=== PATIENT | female | born 1995 | race Two or more races ===

== ENCOUNTER 2024-10-01 16:03 | Emergency (ER) | payer MEDICAID, SELFPAY ==
[2024-10-01 16:04] VITALS: BP 138/76; PULSE 78; RESP 16; TEMP 36.8; O2SAT 99
--- NOTE | 2024-10-01 16:32 | XR_ITS ---
Examination: Complete OB ultrasound, less than 14 weeks, transabdominal Date and time of exam: October 01, 2024 1723 hrs. Indications: Early by history with onset right lower abdomen pain beginning one week ago Technique: Obstetrical ultrasound images less than 14 weeks performed via transabdominal imaging Findings: A normal shaped single intrauterine gestation is present in the uterus. pole 1.3 cm corresponds to 7 weeks 4 days gestational age Cardiac motion 166 BPM Ultrasonographic survey of visible and placental structures unremarkable. Amniotic fluid volume appears appropriate for this estimated gestational age. Right ovary 2.9 x 2.2 x 3.1 cm arterial flow 18 mm follicular cyst Left ovary 3.1 x 2.3 x 3.0 cm arterial flow Impression: Viable intrauterine gestation 7 weeks 4 days.
--- NOTE | 2024-10-01 16:32 | PD.EDRME ---
Rapid Medical Screening Exam RME Arrival date/time: 10/01/24 16:03 29-year-old female approximately 8 weeks presents emergency department complaint of right-sided pelvic pain Chief Complaint: OB/Uterine Contractions Time Seen by Provider: 10/01/24 16:08
[2024-10-01 16:57] LABS: Basophils % (Auto) 0 % (0-2.5); Eosinophils # (Auto) 0.1 Thou/mm3 (0.0-0.5); Eosinophils % (Auto) 1 % (0-10); Hematocrit 39.6 % (36.0-46.0); Hemoglobin 13.7 g/dL (12.0-16.0); Immature Granulocytes % (Auto) 0 % (0-0); Immature Granulocytes Auto 0.04 Thou/mm3 (0.00-0.00); Lymphocytes # (Auto) 2.6 Thou/mm3 (1.0-4.8); Lymphocytes % (Auto) 24 % (10-50); Mean Corpuscular HGB Conc 34.6 g/dl (31.0-37.0); Mean Corpuscular Hemoglobin 30.7 pg (25.0-35.0); Mean Corpuscular Volume 89 fL (80-100); Monocytes # (Auto) 0.6 Thou/mm3 (0.0-0.8); Monocytes % (Auto) 5 % (0-12); Neutrophils # (Auto) 7.5 Thou/mm3 (1.8-7.7); Neutrophils % (Auto) 69 % (37-80); Nucleated Red Blood Cell % 0 /100 WBC (0); Platelet Count 219 Thou/mm3 (140-440); RDW Standard Deviation 40.3 fL (36.4-46.3); Red Blood Count 4.46 Miln/mm3 (4.00-5.20); White Blood Count 10.9 Thou/mm3 (3.6-11.0)
[2024-10-01 17:04] LABS: Collection Type, Urine Clean Catch
[2024-10-01 17:09] LABS: Bilirubin,Urine Negative (Negative); Blood,Urine Trace (Negative); Clarity,Urine Clear (Clear/Hazy); Color,Urine Lt-Yellow (Lt Yel-Yel); Glucose, Urine Negative (Negative); Ketones,Urine 1+ (Negative); Leukocyte Esterase,Urine Negative (Negative); Nitrite,Urine Negative (Negative); PH,Urine 6.5 (5.0-7.0); Protein,Urine Negative (Neg - Trace); RBC,Urine 3 /hpf (0-3); Specific Gravity,Urine 1.016 (1.001-1.035); Squamous Epithelial Cell,Urine 3 /hpf (0-5); Urobilinogen,Urine Negative mg/dL (0.0-1.0); WBC,Urine 1 /hpf (0-5)
[2024-10-01 18:00] LABS: Alanine Aminotransferase 12 U/L (10-49); Albumin, Serum 4.8 gm/dL (3.5-5.0); Albumin/Globulin Ratio 1.7 (1.2-2.2); Alkaline Phosphatase 48 U/L (46-116); Anion Gap 9 (7-16); Aspartate Amino Transferase 14 U/L (0-34); BUN/Creatinine Ratio 17 Ratio (12-20); Beta HCG,Quantitative 48079 mIU/mL (<5.0); Bilirubin,Total 0.3 mg/dL (0.3-1.2); Blood Urea Nitrogen 10 mg/dL (9-23); Calcium 9.6 mg/dL (8.3-10.6); Calcium (Corrected) 9.6 mg/dL (8.5-10.1); Carbon Dioxide 22.9 mMol/L (20.0-31.0); Chloride 103 mMol/L (98-107); Creatinine (Component) 0.6 mg/dL (0.6-1.3); Globulin 2.8 gm/dL (2.3-3.5); Glucose 93 mg/dL (74-106); Osmolality,Calculated 269 (275-295); Potassium 3.7 mMol/L (3.4-5.1); Sodium 135 mMol/L (136-145); Total Protein 7.6 gm/dL (5.7-8.2); eGFR > 60 See Note
--- NOTE | 2024-10-01 22:13 | EDNOTE_ITS ---
ED OB Contraction Preg RMI/HPI General Chief complaint: OB/Uterine Contractions Stated complaint: 8 weeks OB, cramping Time Seen by Provider: 10/01/24 16:08 Arrival date/time: 10/01/24 16:03 This is a 29-year-old female that comes in with complaints of abdominal cramping right lower pelvic area. Upon assessment patient denies any pain.. Patient is a 4 para 2. Patient had an ectopic previously. Patient denies any past medical history. RME / HPI RME / HPI Narrative: 10/01/24 16:03 29-year-old female approximately 8 weeks presents emergency department complaint of right-sided pelvic pain Related Data Home Medications ?Medication ?Instructions ?Recorded ?Confirmed prenat.vits,ewa,[id number]-[id number]-vrzrl 1 tab PO QDAY 02/28/23 04/16/23 Allergies Allergy/AdvReac Type Severity Reaction Status Date / Time No Known Allergies Allergy Verified 04/16/23 08:57 Review of Systems Review of Systems Systems Reviewed: All systems reviewed, normal except as documented Past Medical History Surgical History SURGICAL: Positive Section Social History SOCIAL: Denies Past Medical History Comments PMH COMMENT: Type 2 diabetes ED Exam General General appearance: Present alert and in no apparent distress Head Head exam: Present atraumatic Eye Eye exam: Present normal appearance, PERRL and EOMI ENT ENT exam: Present normal exam, normal oropharynx and mucous membranes moist Neck Neck exam: Present normal inspection, full ROM and trachea midline Chest Chest inspection: Present normal inspection and symmetric chest wall rise Respiratory Respiratory exam: Present normal lung sounds bilaterally Cardiovascular Cardiovascular exam: Present regular rate, normal rhythm and normal heart sounds Abdominal Exam Abdominal exam: Present soft and other (soft nontender ) Extremities Exam Extremities exam: Present normal inspection and full ROM Back Exam Back exam: Present normal inspection and full ROM Neurological Exam Neurological exam: Present alert, oriented X3 and CN II-XII intact Psychiatric Psychiatric exam: Present normal affect and normal mood Skin Skin exam: Present warm, dry, intact and normal color Course Quality Measures none Orders Category Date Time Status US OB <= 14 weeks fetus Stat Exams 10/01/24 16:32 Completed ABO/RH Type Stat Lab 10/01/24 16:47 Completed Beta HCG,Quantitative Stat Lab 10/01/24 16:47 Completed CBC Stat Lab 10/01/24 16:47 Completed Comprehensive Metabolic Panel Stat Lab 10/01/24 16:47 Completed UA [Urinalysis] Stat Lab 10/01/24 16:54 Completed Urine Culture Stat Lab 10/01/24 16:54 Completed Vital Signs Vital signs: Vital Signs Temperature 98.2 F 10/01/24 16:04 Pulse Rate 78 10/01/24 16:04 Respiratory Rate 16 10/01/24 16:04 Blood Pressure 138/76 H 10/01/24 16:04 Pulse Oximetry (%) 99 10/01/24 16:04 Oxygen Delivery Method Room Air 10/01/24 16:04 OB/Uterine Contractions MDM Narrative MDM Narrative:: [place] [address]. Patient told to follow up with obgyn in 1-2 days. Come back to ED if symptoms change ow worsened. Pt denies c/o at the time of dc. Patient data External records reviewed:: [facility] previous records Clinical information provided by:: patient Social determinants that could affect healthcare access:: none Patient has the following chronic illnesses:: none How is presenting disease/condition affected by chronic disease/condition?: no chronic disease Evaluation data The following diagnostics were reviewed and interpreted by me:: lab results and radiology exam(s) Lab and/or radiology exams considered but not ordered:: none Interpretation Summary: see note Medications / Prescriptions Medications or Prescriptions considered but not ordered:: none Medication administrations:: none Consultations Consultation(s) initiated? (list below): No Diagnosis OB Contractions Differential Diagnosis: other (threatened misscarriage, uti) Most likely diagnosis given after review of the tests above:: threatened misscarriage Admission Indicated Explain why admission is indicated or not indicated:: na Admission Request Was there a request for admission?: No Disposition Plan Disposition Plan: Discharge Discharge Attestation Discharge Attestation: The patient and all family members were given an opportunity to ask questions and understood the discharge instructions. Discharge instructions specifically effects, indications for sooner follow up or return to the emergency department, and the expected course of current diagnosis. Patient condition: Stable Discharge Plan Plan Patient Disposition: HOME (Self Care) Patient condition on transfer: Stable Prescriptions/Referrals Prescriptions/Med Rec: No Action prenat.vits,ewa,zqf-cnta-zjxbe Tablet 1 tab PO QDAY Referrals: Beny Michaels MD [Primary Care Provider] - In 1 week Problem List Clinical Impression: 7 weeks gestation of , Follicular cyst of right ovary, Miscarriage, threatened, early Patient/Caregiver Discharge Instructions Discharge Activity: activity as tolerated Education Materials: First Trimester Additional Instructions: Please follow-up with primary provider in 1 to 2 days. Come back to the emergency room symptoms change or worsen. Print Language: [place] Stand Alone Forms: Alicia Award Info., Patient Portal Info Letter PA/REGISTERED NURSE FLOAT POOL Supervising Physician PA/REGISTERED NURSE FLOAT POOL Supervising Physician: ata
== END 2024-10-01 22:32 | disposition home or self-care (01) ==
PROVIDERS: Nurse Practitioner Primary Care; Emergency Provider Emergency Medicine; PCP Family Medicine
DX: O20.0 Threatened abortion (principal); O34.81 Maternal care for other abnormalities of pelvic organs, first trimester; N83.01 Follicular cyst of right ovary; Z3A.01 Less than 8 weeks gestation of pregnancy
CPT/HCPCS: 36415; 76801; 80053; 81001; 84702; 85025; 86900; 86901; 87086; 99284

== ENCOUNTER 2025-05-04 14:48 | Outpatient (RCR) | payer MEDICAID, SELFPAY ==
--- NOTE | 2025-03-23 15:53 | XR_ITS ---
Examination: Biophysical profile, ultrasound Date and time of exam: March 23, 2025 1607 hours INDICATIONS: Gestational diabetes Technique: Multiple transabdominal sonographic images of the pelvis abdomen obtained. Attention is directed to the breathing movement, gross body movement, amniotic fluid volume and tone. Findings: Amniotic fluid index 10.2 cm Total biophysical profile is 8 of 8. breathing movement is 2. Gross body movement is 2. tone is 2. Qualitative amniotic fluid volume is 2 Impression: Biophysical profile is 8 of 8.
[2025-03-23 16:30] VITALS: BP 108/71; PULSE 84; RESP 16; TEMP 36.6
--- NOTE | 2025-03-26 15:36 | XR_ITS ---
Examination: Biophysical profile, ultrasound Date and time of exam: March 26, 2025 1543 hours INDICATIONS: Diagnosis type 2 diabetes Technique: Multiple transabdominal sonographic images of the pelvis abdomen obtained. Attention is directed to the breathing movement, gross body movement, amniotic fluid volume and tone. Findings: Amniotic fluid index 10.9 cm Total biophysical profile is 8 of 8. breathing movement is 2. Gross body movement is 2. tone is 2. Qualitative amniotic fluid volume is 2 Impression: Biophysical profile is 8 of 8.
[2025-03-26 16:25] VITALS: BP 107/63; PULSE 74; RESP 16
--- NOTE | 2025-04-02 15:31 | XR_ITS ---
Examination: Biophysical profile, ultrasound Date and time of exam: April 02, 2025 1533 hours INDICATIONS: Gestational diabetes Technique: Multiple transabdominal sonographic images of the pelvis abdomen obtained. Attention is directed to the breathing movement, gross body movement, amniotic fluid volume and tone. Findings: Amniotic fluid index 16.4 cm Total biophysical profile is 8 of 8. breathing movement is 2. Gross body movement is 2. tone is 2. Qualitative amniotic fluid volume is 2 Impression: Biophysical profile is 8 of 8.
[2025-04-02 16:07] VITALS: BP 107/60; PULSE 80; RESP 16; TEMP 36.7
--- NOTE | 2025-04-06 15:28 | XR_ITS ---
Examination: Biophysical profile, ultrasound Date and time of exam: April 06, 2025 1533 hours INDICATIONS: Diagnosis pre-existing diabetes Technique: Multiple transabdominal sonographic images of the pelvis abdomen obtained. Attention is directed to the breathing movement, gross body movement, amniotic fluid volume and tone. Findings: Amniotic fluid index 11.1 cm Total biophysical profile is 8 of 8. breathing movement is 2. Gross body movement is 2. tone is 2. Qualitative amniotic fluid volume is 2 Impression: Biophysical profile is 8 of 8.
[2025-04-06 16:05] VITALS: BP 106/70; PULSE 93; RESP 16; TEMP 36.7
--- NOTE | 2025-04-13 15:22 | XR_ITS ---
Examination: Biophysical profile, ultrasound Date and time of exam: April 13, 2025 1526 hours Diagnoses pre-existing diabetes Technique: Multiple transabdominal sonographic images of the pelvis abdomen obtained. Attention is directed to the breathing movement, gross body movement, amniotic fluid volume and tone. Findings: Amniotic fluid index 10.8 cm Total biophysical profile is 8 of 8. breathing movement is 2. Gross body movement is 2. tone is 2. Qualitative amniotic fluid volume is 2 Impression: Biophysical profile is 8 of 8.
[2025-04-13 15:42] VITALS: BP 105/58; PULSE 73; RESP 16; TEMP 36.7
--- NOTE | 2025-04-16 09:59 | XR_ITS ---
Examination: Biophysical profile, ultrasound Date and time of exam: 2024 1011 hours INDICATIONS: Diagnosis diabetes Technique: Multiple transabdominal sonographic images of the pelvis abdomen obtained. Attention is directed to the breathing movement, gross body movement, amniotic fluid volume and tone. Findings: Amniotic fluid index 10.6 cm Total biophysical profile is 8 of 8. breathing movement is 2. Gross body movement is 2. tone is 2. Qualitative amniotic fluid volume is 2 Impression: Biophysical profile is 8 of 8.
[2025-04-16 10:53] VITALS: BP 106/59; PULSE 81; RESP 16; TEMP 36.8
--- NOTE | 2025-04-20 15:26 | XR_ITS ---
Examination: Biophysical profile, ultrasound Date and time of exam: April 20, 2025 1529 hours INDICATIONS: Diagnosis gestational diabetes Technique: Multiple transabdominal sonographic images of the pelvis abdomen obtained. Attention is directed to the breathing movement, gross body movement, amniotic fluid volume and tone. Findings: Amniotic fluid index 11 cm Total biophysical profile is 8 of 8. breathing movement is 2. Gross body movement is 2. tone is 2. Qualitative amniotic fluid volume is 2 Impression: Biophysical profile is 8 of 8.
[2025-04-20 16:45] VITALS: BP 108/65; PULSE 82; RESP 19; TEMP 36.7
--- NOTE | 2025-04-23 15:03 | XR_ITS ---
Examination: Biophysical profile, ultrasound Date and time of exam: April 23, 2025 1505 hours INDICATIONS: Diagnosis type 2 diabetes Technique: Multiple transabdominal sonographic images of the pelvis abdomen obtained. Attention is directed to the breathing movement, gross body movement, amniotic fluid volume and tone. Findings: Amniotic fluid index 9.8 cm Total biophysical profile is 8 of 8. breathing movement is 2. Gross body movement is 2. tone is 2. Qualitative amniotic fluid volume is 2 Impression: Biophysical profile is 8 of 8.
[2025-04-23 15:26] VITALS: BP 98/64; PULSE 88; RESP 16; TEMP 36.8
--- NOTE | 2025-04-30 08:52 | XR_ITS ---
Examination: Biophysical profile, ultrasound Date and time of exam: April 30, 2025 0904 hours INDICATIONS: Diagnosis type 2 diabetes Technique: Multiple transabdominal sonographic images of the pelvis abdomen obtained. Attention is directed to the breathing movement, gross body movement, amniotic fluid volume and tone. Findings: Amniotic fluid index 10.5 cm Total biophysical profile is 8 of 8. breathing movement is 2. Gross body movement is 2. tone is 2. Qualitative amniotic fluid volume is 2 Impression: Biophysical profile is 8 of 8.
[2025-04-30 09:27] VITALS: BP 105/71; PULSE 87; RESP 16; TEMP 36.7
--- NOTE | 2025-05-04 14:52 | XR_ITS ---
Examination: Biophysical profile, ultrasound Date and time of exam: May 04, 2025 1453 hours INDICATIONS: Type 2 diabetes Technique: Multiple transabdominal sonographic images of the pelvis abdomen obtained. Attention is directed to the breathing movement, gross body movement, amniotic fluid volume and tone. Findings: Amniotic fluid index 7.8 cm Total biophysical profile is 8 of 8. breathing movement is 2. Gross body movement is 2. tone is 2. Qualitative amniotic fluid volume is 2 Impression: Biophysical profile is 8 of 8.
[2025-05-04 15:15] VITALS: BP 106/71; PULSE 92; RESP 16; TEMP 36.7
== END 2025-05-04 23:59 | disposition home or self-care (01) ==
LOC: S4S1 14:48
PROVIDERS: Referring Provider Student in an Organized Health Care Education/Training Program; Visit Provider Student in an Organized Health Care Education/Training Program
DX: O24.113 Pre-existing type 2 diabetes mellitus, in pregnancy, third trimester (principal); E11.9 Type 2 diabetes mellitus without complications; Z3A.38 38 weeks gestation of pregnancy; Z79.84 Long term (current) use of oral hypoglycemic drugs
CPT/HCPCS: 59025; 76819

== ENCOUNTER 2025-05-07 05:14 | Inpatient (IN) | payer MEDICAID, SELFPAY ==
[2025-05-07] VITALS (19 sets, daily range): BP systolic 88–119; BP diastolic 52–78; PULSE 61–99; RESP 12–20; TEMP 36.3–36.9; O2SAT 95–100; BMI 37.5
[2025-05-07] MEDS: RINGERS LACTATED 1000 ML 1,000 ML 125 ML IV (05:56)
[2025-05-07 06:27] LABS: Basophils # (Auto) 0.0 Thou/mm3 (0.0-0.2); Basophils % (Auto) 0 % (0-2.5); Eosinophils # (Auto) 0.1 Thou/mm3 (0.0-0.5); Eosinophils % (Auto) 2 % (0-10); Hematocrit 35.3 % (36.0-46.0); Hemoglobin 12.1 g/dL (12.0-16.0); Immature Granulocytes Auto 0.05 Thou/mm3 (0.00-0.00); Lymphocytes # (Auto) 2.0 Thou/mm3 (1.0-4.8); Lymphocytes % (Auto) 26 % (10-50); Mean Corpuscular HGB Conc 34.3 g/dl (31.0-37.0); Mean Corpuscular Hemoglobin 30.9 pg (25.0-35.0); Mean Corpuscular Volume 90 fL (80-100); Monocytes # (Auto) 0.5 Thou/mm3 (0.0-0.8); Monocytes % (Auto) 7 % (0-12); Neutrophils # (Auto) 4.9 Thou/mm3 (1.8-7.7); Neutrophils % (Auto) 64 % (37-80); Nucleated Red Blood Cell # 0.00 Thou/mm3 (0.00-0.00); Nucleated Red Blood Cell % 0 /100 WBC (0); Platelet Count 159 Thou/mm3 (140-440); RDW Standard Deviation 46.3 fL (36.4-46.3); Red Blood Count 3.92 Miln/mm3 (4.00-5.20); White Blood Count 7.6 Thou/mm3 (3.6-11.0)
[2025-05-07 07:02] LABS: Alanine Aminotransferase 9 U/L (10-49); Albumin, Serum 3.9 gm/dL (3.5-5.0); Albumin/Globulin Ratio 1.6 (1.2-2.2); Alkaline Phosphatase 81 U/L (46-116); Anion Gap 9 (7-16); Aspartate Amino Transferase 12 U/L (0-34); BUN/Creatinine Ratio 18 Ratio (12-20); Bilirubin,Total 0.4 mg/dL (0.3-1.2); Blood Urea Nitrogen 9 mg/dL (9-23); Calcium 8.7 mg/dL (8.3-10.6); Calcium (Corrected) 8.8 mg/dL (8.5-10.1); Carbon Dioxide 20.6 mMol/L (20.0-31.0); Chloride 110 mMol/L (98-107); Creatinine (Component) 0.5 mg/dL (0.6-1.3); Estimated Creatinine Clearance 185.0 mL/min (>60); Globulin 2.4 gm/dL (2.3-3.5); Glucose 89 mg/dL (74-106); Osmolality,Calculated 277 (275-295); Potassium 3.8 mMol/L (3.4-5.1); Sodium 140 mMol/L (136-145); Total Protein 6.3 gm/dL (5.7-8.2); eGFR > 60 See Note
[2025-05-07 07:05] LABS: Syphilis Nonreactive (Nonreactive)
[2025-05-07] MEDS: ceFAZolin/D5W 2 GM IV 2 GM/100 ML BAG IV (07:24)
[2025-05-07] MEDS: FAMOTIDINE INJ 10 MG/ML VIAL 2 ML 20 MG IV (07:24)
[2025-05-07] MEDS: CITRIC ACID/SODIUM CITR 15 ML UDC (BICITRA) 30 ML PO (07:24)
--- NOTE | 2025-05-07 07:40 | PD.LDHP ---
Documentation for date of: 05/07/25 OB Labor/Induct. HPI History of Present Illness : 4 Term pregnancies: 1 Living children: 1 History of sections: Yes (X2) Date of last menstrual period: 07/20/24 KAYVA: 05/15/25 Gestational age based on last menstrual period: 39 History of present illness: 30-year-old 4 para 2-0-1-2 at 38 weeks and 6 days admitted for repeat low-transverse for type 2 diabetes on metformin not very well-controlled. Patient declined insulin. patient has a previous history of 2 section and an ectopic . Denies any contractions, leaking, bleeding History of Present Dating criteria: LMP confirmed by 1st trimester US Labs Labs: Positive: Rubella Titre, Negative: RPR, Hepatitis B, HIV, Chlamydia and Gonorrhea and Unknown: Herpes Type 1, Herpes Type 2, Group Beta Strep and Covid-19 Past Medical History Surgical History SURGICAL: Positive Section (X2) Meds Home Medications and Allergies Home Medications ?Medication ?Instructions ?Recorded ?Confirmed ?Type prenat.vits,ewa,ktl-owkk-bzzai 1 tab PO QDAY 02/28/23 04/16/23 History metformin 500 mg tablet 1,000 mg PO QDAY 05/07/25 05/07/25 History Allergies Allergy/AdvReac Type Severity Reaction Status Date / Time No Known Allergies Allergy Verified 05/07/25 05:32 OB Exam Physical Exam Vital signs: Temp Pulse BP Pulse Ox O2 Del Method 98.2 F 99 113/60 100 Room Air 05/07/25 05:57 05/07/25 05:59 05/07/25 05:59 05/07/25 05:57 05/07/25 05:57 Constitutional Constitutional: no acute distress Routine HEENT Exam Head: Present normocephalic and atraumatic Eye: Present EOMI and PERRL ENT: Present mucous membranes moist Routine Neck Exam Neck: Present supple and trachea midline Routine Cardiovascular Exam Cardiovascular: Present RRR Routine Abdominal Exam Abdominal: Present soft and normoactive bowel sounds Routine Extremities Exam Extremities: Present full ROM Routine Skin Exam Skin: Present intact, dry and warm Routine Neurological Exam Neurological: Present alert, oriented X3 and CN II-XII intact Routine Psychiatric Exam Psychiatric: Present normal affect and normal thought process OB Results Labs 05/07/25 05:45 05/07/25 05:45 Labs: Short CBC 05/07/25 Range/Units 05:45 WBC 7.6 (3.6-11.0) Thou/mm3 Hgb 12.1 (12.0-16.0) g/dL Hct 35.3 L (36.0-46.0) % Plt Count 159 (140-440) Thou/mm3 BMP 05/07/25 05:45 Sodium 140 Potassium 3.8 Chloride 110 H Carbon Dioxide 20.6 BUN 9 Creatinine 0.5 L Glucose 89 Calcium 8.7 Liver Function 05/07/25 Range/Units 05:45 Total Bilirubin 0.4 (0.3-1.2) mg/dL AST 12 (0-34) U/L ALT 9 L (10-49) U/L Alkaline Phosphatase 81 (46-116) U/L Albumin 3.9 (3.5-5.0) gm/dL Impressions Impression: 30-year-old 4 para 2-0-1-2 at 38 weeks and 6 days admitted for repeat low-transverse for type 2 diabetes on medication Admission glucose 89, admission hemoglobin 12 Anterior placenta no previa Normal anatomy OB Assessment & Plan Additional Plan Additional Plan Comment: Repeat low-transverse Antibiotic prophylaxis DVT prophylaxis
[2025-05-07] MEDS: ONDANSETRON INJ 2 MG/ML INJ 2 ML 4 MG IVP (10:13)
[2025-05-07 14:20] LABS: Basophils # (Auto) 0.0 Thou/mm3 (0.0-0.2); Basophils % (Auto) 0 % (0-2.5); Eosinophils # (Auto) 0.0 Thou/mm3 (0.0-0.5); Eosinophils % (Auto) 0 % (0-10); Hematocrit 35.6 % (36.0-46.0); Hemoglobin 12.0 g/dL (12.0-16.0); Immature Granulocytes Auto 0.06 Thou/mm3 (0.00-0.00); Lymphocytes # (Auto) 0.9 Thou/mm3 (1.0-4.8); Lymphocytes % (Auto) 8 % (10-50); Mean Corpuscular HGB Conc 33.7 g/dl (31.0-37.0); Mean Corpuscular Hemoglobin 30.6 pg (25.0-35.0); Mean Corpuscular Volume 91 fL (80-100); Monocytes # (Auto) 0.6 Thou/mm3 (0.0-0.8); Monocytes % (Auto) 5 % (0-12); Neutrophils # (Auto) 10.1 Thou/mm3 (1.8-7.7); Neutrophils % (Auto) 86 % (37-80); Nucleated Red Blood Cell # 0.00 Thou/mm3 (0.00-0.00); Nucleated Red Blood Cell % 0 /100 WBC (0); Platelet Count 146 Thou/mm3 (140-440); RDW Standard Deviation 46.8 fL (36.4-46.3); Red Blood Count 3.92 Miln/mm3 (4.00-5.20); White Blood Count 11.6 Thou/mm3 (3.6-11.0)
[2025-05-07] MEDS: OXYTOCIN in NS 20 units 20 UNIT/1,000 ML BAG 125 UNIT IV ×2 (15:29→23:04)
--- NOTE | 2025-05-07 17:44 | PD.GYNPROC ---
Operative Note - HEAD OPERATOR Procedure Date of procedure: 05/07/25 Procedure Performed: repeat Low transverse C section Indication: previous Csection Type 2 DM on medication Pre-Op diagnosis: same Post-Op diagnosis: same Anesthesia type: Spinal Procedure description: Informed consent was obtained and the patient was taken to the operating room.? Identity was confirmed by double identifiers and she was placed on the operating table.The abdomen and perineum were prepped in the usual sterile fashion and a Cavazos catheter was placed to continuous drainage.? Sterile drapes were applied.??A Pfannenstiel skin incision was made with a scalpel and carried to the subcutaneous fat up to the rectus fascia.? The rectus fascia was incised on either side of the midline and the incisions were extended bilaterally.? The fascia was gently dissected off the ventral surface of the rectus muscle only superiorly. peritoneum opened after making sure no adhesions are there underneath. bladder flap carefully created, then hysterotomy incision made and extended bluntly with finger. placenta edge was Rupture of membranes revealed clear fluid. The baby was found in cephalic presentation and was delivered via vertex. the umbilical cord , was doubly clamped, divided and the was handed over to the waiting team. The placenta delivered by controlled cord traction . The interior of the uterus was now thorougly cleaned of all blood and debris and membranes.?The? hysterotomy was closed using 0 vicryl suture in double layers. Once the repair was completed the hysterotomy was inspected, was noted to be adequately hemostatic. surgicele powder used for hemostaisi. Then the rectus fascia was repaired using Vicryl 0 in a running fashion.? The subcutaneous layer was now, approximated with 3-0 vicryl in double layers.? All bleeding points were cauterized using the Bovie.?The skin was closed using 4-0 Monocryl in a subcuticular fashion.? The skin was cleaned and a sterile dressing was applied. The patient was now undraped, the abdomen and back were thoroughly cleaned and she was now transferred to the recovery room in a stable Estimated blood loss (ml): 400 Surgical staff Operation Date: 05/07/25 07:45 Case Staff MANAGER CARDIOLOGY: Eric Lynn RNpercussion instructor: Maksim Estrada Diagnosis Problem List Completed Was Problem List Reviewed/Reconciled?: Yes
--- NOTE | 2025-05-07 18:00 | PD.LDDELS ---
Data ([facility]za) Data Hx Section: Yes (X2) : 4 Term: 1 Livin Delivery Data (Desouza) Labor Data ROM date: 05/07/25 ROM time: 08:02 Amniotic membrane rupture type: Artificial Amniotic fluid description: Clear Delivery Data Onset of labor date: 05/07/25 Onset of labor time: 08:03 Complete dilation date: 05/07/25 Complete dilation time: 08:03 delivery date: 05/07/25 Elrama delivery time: 08:03 Gestational age (weeks): 38 Gestational age (days): 6 Placenta delivery date: 05/07/25 Placenta delivery time: 08:04 Stage 1 total time: Labor - Stage 1 Duration 0 minutes Delivered by: KEANU COUGHLIN Delivery nurse: SPENSER Lala nurse: HANDY JEAN Chemistry Technical Officer at delivery: No Support person(s) at delivery: FOB Other staff at delivery: AYONE Delivery Method Delivery method: Low Transverse Anesthesia Type Anesthesia type: Spinal Placenta Placenta delivery description: Manual Removal Cord blood sent to lab: Yes cord blood collection: Cord Blood Type EBL Estimated blood loss (ml): 400 Umbilical Cord cord description: 3 Vessels Elrama Data (Desouza) Data order: 1 Elrama's gender: Female weight (gms): 3250 g Weight (pounds): 7 lbs and 2.6 ozs 1 minute: 9 5 minutes: 9
[2025-05-08 03:30] VITALS: BP 104/70; PULSE 61; RESP 16; TEMP 36.7; O2SAT 95
[2025-05-08] MEDS: IBUPROFEN TAB 400 MG TABLET 800 MG PO ×2 (10:37→19:17)
[2025-05-08 15:50] VITALS: BP 114/76; PULSE 78; RESP 18; TEMP 36.9; O2SAT 97
[2025-05-08 19:37] VITALS: BP 109/71; PULSE 84; RESP 16; TEMP 36.9; O2SAT 98
[2025-05-09] MEDS: IBUPROFEN TAB 400 MG TABLET 800 MG PO ×2 (03:43→11:42)
[2025-05-09 03:55] VITALS: BP 104/65; PULSE 70; RESP 18; TEMP 36.8; O2SAT 97
[2025-05-09 08:21] VITALS: BP 110/72; PULSE 77; RESP 17; TEMP 36.6; O2SAT 97
--- NOTE | 2025-05-09 09:07 | PD.LDPPPRG ---
Subjective Subjective Interval history: The patient is a 30-year-old G4 now P3013 status post repeat #[address] Godoy 05/07/2025. She is resting comfortably in bed today. She is bottlefeeding baby. She is ready to go home. She is postoperative day #2 today. She denies heavy bleeding, fevers or chills. Her pain is controlled with oral pain medication. She requests [place] to go home. This is her 3rd . She has a 12-year-old son and 2-year-old son at home. Her predelivery hemoglobin was 12.1 post delivery hemoglobin is 12 Exam Vital Signs Temp Pulse Resp BP Pulse Ox O2 Del Method 98 F 77 17 110/72 97 Room Air 05/09/25 08:21 05/09/25 08:21 05/09/25 08:21 05/09/25 08:21 05/09/25 08:21 05/09/25 08:21 Narrative Exam Patient is alert and oriented x 3 in no apparent distress. She is resting comfortably in her chair. Her baby is in the crib asleep. Fundus is firm nontender extremities show no significant edema or erythema. Her incision is clean dry and intact. Objective Labs 05/07/25 14:10 05/07/25 05:45 Assessment & Plan Problem List (1) delivery delivered: Status: Acute Assessment and plan: Patient is stable for discharge day #2. It is her third . Postop instructions given. Patient understands no heavy lifting, tampons, douching, exercise, bathtubs, swimming pools x 6 weeks. Follow-up with family [facility] in 1 week. (2) Gestational diabetes mellitus (GDM): Status: Acute Assessment and plan: Patient will control her diabetes with diet and check her blood sugars. Time Spent With Patient Time: Total time spent is greater than 50% in coordination of care (as documented) at patient's floor/unit and/or counseling patient: Time with patient: less than 15 minutes
--- NOTE | 2025-05-09 09:15 | PD.LDDS ---
DS: Providers Provider Date of admission: 05/07/25 05:14 Primary care physician: Physician No Primary/Family Admitting Provider: Andree Godoy MD Attending Provider on Admission: Andree Godoy MD Consults: 05/07/25 07:43 Referral Routine Comment: Attending Provider on DC: [facility] ([facility]) Discharging Provider: Emily Simental MD ([facility]) Anticipated date of discharge: 05/09/25 DS: Diagnosis Discharge Diagnosis (1) Gestational diabetes mellitus (GDM): Status: Acute Assessment & Plan: To follow her diet and check her blood sugars as needed (2) delivery delivered: Status: Acute Assessment & Plan: Discharge instructions given. Problem List Completed Was Problem List Reviewed/Reconciled?: Yes Summary/Hosp Course Brief History: 30-year-old 4 para 2-0-1-2 at 38 weeks and 6 days admitted for repeat low-transverse for type 2 diabetes on metformin not very well-controlled. Patient declined insulin. patient has a previous history of 2 section and an ectopic . Denies any contractions, leaking, bleeding. Peripartum Data Delivery Method: Low Transverse Procedures: Procedures Operation Date: 05/07/25 07:45 Actual Procedure Side Surgeon p in OB Not Applicable Andree Godoy MD complications: none Status at Discharge Cognitive/behavioral status at discharge: Patient is alert and oriented x 3 in no apparent distress Functional status at discharge: independent ambulation Overall status at discharge: patient is progressing back to baseline Time Spent with Patient Time attestation: Total time spent providing and/or coordinating discharge services: Time spent: Less than 30 minutes Specific discharge activities: No heavy lifting, intercourse, tampons, douching or exercise x 6 weeks Exam Vital Signs Temp Pulse Resp BP Pulse Ox O2 Del Method 98 F 77 17 110/72 97 Room Air 05/09/25 08:21 05/09/25 08:21 05/09/25 08:21 05/09/25 08:21 05/09/25 08:21 05/09/25 08:21 Narrative Exam Patient is alert and oriented x 3 in no apparent distress Fundus is firm, nontender Incisions clean dry and intact Extremities show no significant edema or erythema Discharge Plan Plan Patient Disposition: HOME (Self Care) Disposition Comment: Stable Prescriptions/Referrals Prescriptions/Med Rec: New acetaminophen 325 mg Tablet 650 mg PO Q4H PRN (Reason: See Comments) Qty: 60 0RF hydrocodone-acetaminophen 5-325 mg Tablet 2 tab PO Q6HR MDD 8 PRN (Reason: Patient rated pain 9 to 10) Qty: 30 0RF ibuprofen 400 mg Tablet 800 mg PO Q8H PRN (Reason: See Comments) Qty: 60 0RF Continued metformin 500 mg tablet 1,000 mg PO QDAY Patient Comments: take 1 tablet by mouth once daily with food No Action prenat.vits,ewa,gdr-weln-sxdnd Tablet 1 tab PO QDAY Referrals: No Primary/Family,Physician [Primary Care Provider] - Patient/Caregiver Discharge Instructions Discharge Activity: activity as tolerated Other Discharge Activity Instructions:: No heavy exercise or heavy lifting x 6 weeks. Pelvic rest x 6 weeks. No intercourse, tampons, douching, bathtubs or swimming x 6 weeks Other Discharge Diet Instructions: Diabetic diet check blood sugars continue metformin Education Materials: What Is Gestational Diabetes?, C Section Dc, Gestational Diabetes After ..., Gestational Diabetes Getting ... Print Language: Citizen Of [place] Activity Restrictions/Additional Instructions: No heavy lifting or exercise x 6 weeks pelvic rest x 6 weeks. No intercourse, tampons, douching, bathtubs, swimming x 6 weeks. Call for fevers 100.4 ?F or higher, heavy vaginal bleeding, or signs of depression. Stand Alone Forms: [facility]ia Award Info., Patient Portal Info Letter Discharge Order Discharge Orders: Discharge (Routine); Ordered 05/09/25 Ordered By: Emily Simental ([facility]) Planned Discharge Date 05/09/25 (1) Gestational diabetes mellitus (GDM) Qualifiers: Gestational diabetes mellitus control: diet-controlled Trimester: third trimester Qualified Code(s): O24.410 - Gestational diabetes mellitus in , diet controlled
[2025-05-09 11:51] VITALS: BP 116/78; PULSE 80; RESP 18; TEMP 36.8; O2SAT 96
== END 2025-05-09 15:05 | disposition home or self-care (01) | DRG 540 ==
LOC: S4SX 11:03 → S4NX 20:59
PROVIDERS: Admitting Provider Student in an Organized Health Care Education/Training Program; Visit Provider Student in an Organized Health Care Education/Training Program
PROC: 10D00Z1 Extraction of Products of Conception, Low, Open Approach (ICD-10-PCS; CPT 59514; principal; 2025-05-07 07:30)
DX: O34.211 Maternal care for low transverse scar from previous cesarean delivery (principal); Z37.0 Single live birth; Z3A.38 38 weeks gestation of pregnancy; O24.420 Gestational diabetes mellitus in childbirth, diet controlled; Z79.84 Long term (current) use of oral hypoglycemic drugs
CPT/HCPCS: 36415; 80053; 85025; 86780; 86850; 86900; 86901; J0689; J2274; J2371; J2405; J2590; J3490; J7120; A9270; J2270